=== PATIENT | male | born 1965 | race Caucasian/White ===

== ENCOUNTER 2021-11-07 10:28 | Emergency (ER) | payer OTHER ==
[~2021-11-07] VITALS: Ht 175.3 cm; Wt 65.8 kg
[2021-11-07 10:28] VITALS: BP_SYST 160
--- NOTE | 2021-11-07 10:28 | NUR ---
Patient to ER bed 3 to gown for evaluation. Side rails up. Report given to Lita.
--- NOTE | 2021-11-07 10:38 | NUR ---
DR PÉREZ AT BEDSIDE FOR EXAM
--- NOTE | 2021-11-07 10:46 | NUR ---
spoke with Eddie Joyce [phone] ext. 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
--- NOTE | 2021-11-07 11:02 | NUR ---
PT BIBA FROM WORK PLACE FOR SUDDEN ONSET SEIZURE ACTIVITY WITH INCONTINENCE. PER REPORT, PT WAS POST-ICTAL, NIGERIAN SPEAKING. PT AAOX3, IN NAD. DENIES ANY HISTORY OF SEIZURES. STATES HE DIDNT HAVE BREAKFAST THIS MORNING AND PROBABLY WAS THE REASON, BS WNL IN FIELD. RESP EVEN AND UNLABORED, ON RA 99%. SKIN W/D/I
--- NOTE | 2021-11-07 11:10 | NUR ---
PT TO CT SCAN VIA RDETROIT.
[2021-11-07 11:19] LABS: BASOPHILS % (AUTO) 0.3 % (0.0-2.0); EOSINOPHILS # (AUTO) 0.1 K/uL (0.0-0.4); HEMATOCRIT 41.9 % (36-54); HEMOGLOBIN 14.1 g/dL (14.0-18.0); LYMPHOCYTES # (AUTO) 0.6 K/uL (1.0-5.5); LYMPHOCYTES % (AUTO) 11.9 % (20.5-51.5); MEAN CORPUSCULAR HEMOGLOBIN 28 pg (27-31); MEAN CORPUSCULAR HGB CONC 34 % (32-36); MEAN CORPUSCULAR VOLUME 85 fL (79.0-98.0); MONOCYTES # (AUTO) 0.6 K/uL (0.0-1.0); MONOCYTES % (AUTO) 12.4 % (1.7-9.3); NEUTROPHILS # (AUTO) 3.8 K/uL (1.8-7.7); NEUTROPHILS % (AUTO) 73.4 % (40.0-70.0); PLATELET COUNT (AUTO) 105 K/uL (130-430); RED BLOOD CELL COUNT(AUTO) 4.95 MIL/uL (4.2-6.2); RED CELL DISTRIBUTION WIDTH 13.8 % (9.0-15.0); WHITE BLOOD COUNT (AUTO) 5.2 K/uL (4.8-10.8)
[2021-11-07 11:27] LABS: CALCIUM 8.7 mg/dL (8.4-11.0); CREATININE 0.81 mg/dL (0.55-1.30); POTASSIUM 3.8 mmol/L (3.5-5.1)
[2021-11-07 11:46] LABS: ALBUMIN 3.8 g/dL (3.4-4.8)
--- NOTE | 2021-11-07 12:06 | NUR ---
JAMES SMITH CALLED BACK [phone] CALLED AND REPORTED THAT PT IS LYING AND THATHE DOES HAVE HISTORY OF SEIZURES BUT NOT TAKEN HIS Z MEDS BECAUSE HE'S BEEN DRINKING ALCOHOL FOR THE HOLIDAYS.
[2021-11-07] MEDS ORDERED: LEVE500T9 PO (12:22)
[2021-11-07] MEDS ORDERED: levETIRAcetam 500 MG TABLET PO ONE (12:30)
[2021-11-07] MEDS ORDERED: LORazepam 2 MG/ML VIAL IVP ONE (12:45)
[2021-11-07] MEDS ORDERED: NACL 0.9% 1,000 ML IV ONE (12:45)
--- NOTE | 2021-11-07 13:10 | NUR ---
PT SHAKING AND RESTLESS, WHEN ASKED ABOUT ETOH, HE ADMITTED HE DRINKS BEER. DR PÉREZ INFORMED. NEW ORDERS RECEIVED.
--- NOTE | 2021-11-07 13:49 | NUR ---
Patient given written and verbal discharge instructions and verbalizes understanding. ER MD discussed with patient the results and treatment provided. Patient in stable condition. ID arm band removed. IV catheter removed intact and dressing applied, no active bleeding. Rx of keppra given. Patient educated on pain management and to follow up with PMD. Pain Scale . Opportunity for questions provided and answered. Medication side effect fact sheet provided.
== END 2021-11-07 13:49 | disposition home or self-care (01) ==
LOC: SED 10:28
DX: R56.9 Unspecified convulsions (principal)
CPT/HCPCS: 36415; 70450; 71045; 76376; 80053; 84484; 85025; 93005; 96361; 96374; 99285; J2060; J7030